=== PATIENT | female | born 1985 | race Caucasian/White ===

== ENCOUNTER 2021-12-01 14:44 | Emergency (ER) | payer OTHER, SELFPAY ==
[2021-12-01 15:09] VITALS: BP 110/73; PULSE 99; RESP 16; TEMP 37.9; O2SAT 100; BMI 38.0
--- NOTE | 2021-12-01 15:12 | HMH.EDUTC ---
[facility] [place] Disposition Clinical Impression: Influenza A Disposition: Home, Self-Care Condition on Discharge: Good Instructions: Influenza, DI for Influenza -- Adult Additional Instructions: Drink plenty of fluids. Take tylenol or ibuprofen for pain or fever. Take the medications as directed. Follow up with your regular doctor. GO TO THE ER FOR ANY WORSENING SYMPTOMS The cough medication (promethazine dm) will make you drowsy, so don't drive or operate heavy machinery after taking it. Prescriptions: Promethazine/Dextromethorphan [Promethazine-Dm Syrup] 5 ml PO Q6HP PRN #240 ml PRN Reason: Cough Transmission Status: Pending to [facility] Ondansetron [Zofran 4mg ODT] 4 mg PO Q8HP PRN #20 tab PRN Reason: Nausea Transmission Status: Pending to [facility] Oseltamivir Phosphate [Tamiflu 75mg Capsule] 75 mg PO BID #10 cap Transmission Status: Pending to [facility] Referrals: Jf Pang [Primary Care Provider] - Time of Disposition: 15:51 Medical Decision Making - Medical Records Medical records reviewed: No: I reviewed the patient's medical records. - Frantz Inquiry Pt receiving controlled substance: No Vital Signs: 12/01/21 15:09 Temperature 100.2 F H Temperature Source Oral Pulse Rate [Left] 99 H Respiratory Rate 16 Blood Pressure [Right Arm] 110/73 Blood Pressure Mean [Right Arm] 85 02 Sat by Pulse Oximetry 100 - Lab Data Lab results reviewed: Yes: I reviewed the patient's lab results. Lab Results 12/01/21 15:06: Influenza Type A Ag Positive A, Influenza Type B Ag Negative Orders (Tests/Meds): ORDERS Category Date Time Status Covid-19 Nasal PCR ([facility]) Routine Lab 12/01/21 15:00 Received Rapid Strep Scrn Group A [Strep Scrn Group A (Rapid)] Lab 12/01/21 15:07 Ordered Stat [facility] [place] HPI - General Stated complaint: fever, cough, congestion, BARRY Time Seen by Provider: 12/01/21 15:12 Mode of Arrival: Ambulatory Source of Information: Patient Limitations: No Limitations Description of Symptoms (Recalled from Triage Doc. by RN): pt c/o a fever, dizziness, chest pressure with coughing (productive), and body aches. denies n/v/d HEENT Symptoms (Recalled from RN notes): Yes Resp Symptoms (Recalled from RN notes): Yes Skin Symptoms (Recalled from RN notes): No MS Symptoms (Recalled from RN notes): No Functional Status (Recalled from RN notes): wnl - History of Present Illness Provider Complaint: She states that for the past 2 days she had a sore throat, sinus congestion, chest congestion, fever and body aches. - Related Data Home Medications Medication Instructions Recorded Confirmed Citalopram Hydrobromide [Celexa] 20 mg PO DAILY 05/27/18 08/11/19 Omeprazole [Omeprazole 40mg 40 mg PO DAILY 05/27/18 08/11/19 Capsule] Buspirone HCl [Buspirone 7.5mg 7.5 mg PO BID 08/11/19 08/11/19 tablets] Valacyclovir HCl [Valtrex] 1,000 mg PO DAILY 08/11/19 08/11/19 Previous Rx's Medication Instructions Recorded Phenazopyridine HCl [Pyridium 200 pow PO TID #6 tab 08/11/19 200mg Tablet] Sulfamethoxazole/Trimethoprim 1 each PO BID 10 Days #20 tab 08/11/19 [Bactrim DS tablet] Ondansetron [Zofran 4mg ODT] 4 mg PO Q8HP PRN #20 tab 12/01/21 Oseltamivir Phosphate [Tamiflu 75 mg PO BID #10 cap 12/01/21 75mg Capsule] Promethazine/Dextromethorphan 5 ml PO Q6HP PRN #240 ml 12/01/21 [Promethazine-Dm Syrup] Allergies Allergy/AdvReac Type Severity Reaction Status Date / Time No Known Allergies Allergy Verified 05/27/18 22:07 - Worker's Comp Is this a Worker's Comp case?: No [facility] History - Hepatitis A Screen Drug use history?: No High risk sexual behaviors?: No History of sexually transmitted infection?: No Currently employed?: No Childcare worker?: No Do you have indoor plumbing?: Yes Do you have electricity?: Yes Attestation statement:: This patient has been screened for Hepatitis A r
[2021-12-01 15:28] LABS: UTC Influenza A Antigen Positive (Negative); UTC Influenza B Antigen Negative (Negative)
[2021-12-01 15:56] VITALS: BP 110/73; PULSE 99; RESP 16; TEMP 37.9
[2021-12-01 16:51] LABS: Strep Scrn Group A (Rapid) Negative (Negative)
== END 2021-12-01 15:58 | disposition home or self-care (01) ==
PROVIDERS: Emergency Provider Nurse Practitioner Family; PCP Family Medicine
DX: J10.1 Influenza due to other identified influenza virus with other respiratory manifestations (principal); F17.210 Nicotine dependence, cigarettes, uncomplicated
CPT/HCPCS: 87430; 87804; 99212; C9803; G0463; U0003; U0005

== ENCOUNTER 2022-12-19 15:36 | Outpatient (CLI) | payer OTHER, SELFPAY ==
[2022-12-19 16:00] VITALS: BMI 34.6
== END 2022-12-19 16:06 | disposition home or self-care (01) ==
PROVIDERS: PCP Internal Medicine Adolescent Medicine; Visit Provider Nurse Practitioner Family
DX: Z11.1 Encounter for screening for respiratory tuberculosis (principal)
CPT/HCPCS: 86580

== ENCOUNTER 2022-12-21 18:10 | Emergency (ER) | payer OTHER, SELFPAY ==
[2022-12-21] VITALS (8 sets, daily range): BP systolic 121–145; BP diastolic 73–93; PULSE 61–82; RESP 12–18; TEMP 36.7; O2SAT 97–100; BMI 34.9
--- NOTE | 2022-12-21 18:15 | HMH.EDGENADL ---
Discharge Plan Disposition Patient Disposition: Home, Self-Care Clinical Impressions Clinical Impression: Atypical chest pain Discharge ED Provider: Edin Mosqueda General Adult HPI General Chief complaint: Chest Pain Stated complaint: chest pain Time Seen by Provider: 12/21/22 18:15 Mode of Arrival: Ambulatory Source of Information: Patient Limitations: No Limitations Description of Symptoms (Recalled from ER Triage Doc. by RN): pt comes in with c/o chest pain that began this afternoon. pt reports pain in middle of chest that radiates to back. pt reports pain with deep inspirations. constant dull pain in chest and lungs. History of Present Illness HPI narrative: 37-year-old female presenting with chest pain. This began 4 hours ago was sudden in nature retrosternal radiating through to her back associated with dyspnea and diaphoresis and nausea. States that the pain was worst at onset and is slowly gotten better but she still has significant discomfort at the moment. She states this has not been exertional not pleuritic in nature not positional as well. Denies any lower extremity swelling any recent immobilizations history of DVT or PE or any contraceptive use. No fevers chills or other symptoms. Related Data Allergies Allergy/AdvReac Type Severity Reaction Status Date / Time No Known Allergies Allergy Verified 12/21/22 18:18 [facility] Disclaimer: The information contained in this section may have been updated after the patient was seen, as this information can be updated by other users. Social History Smoking Status: Current every day smoker alcohol intake: never current occupational status: other Travel in the last 8 weeks: None ROS Obtained: Yes All systems reviewed & no additional complaints except as documented Physical Exam General General appearance: alert Chest Chest inspection: Present normal inspection, symmetric chest wall rise and tenderness Respiratory Respiratory exam: Present normal lung sounds bilaterally; Absent respiratory distress, wheezes, stridor or accessory muscle use Cardiovascular Cardiovascular exam: Present regular rate and other (Bilateral upper extremity radial pulses normal and symmetric); Absent tachycardia Neurological Exam Neurological exam: Present oriented X3 Medical Decision Making Frantz Inquiry Pt receiving controlled substance: No Vital Signs: 12/21/22 18:12 12/21/22 18:14 12/21/22 18:30 Temperature 98.1 F Temperature Source Oral Pulse Rate 74 82 Pulse Rate [Left] 76 Respiratory Rate 18 Blood Pressure 127/85 Blood Pressure [Right Arm] 145/88 H Blood Pressure Mean 99 Blood Pressure Mean [Right Arm] 107 02 Sat by Pulse Oximetry 98 98 Oxygen Delivery Method Room Air 12/21/22 19:30 Temperature Temperature Source Pulse Rate 80 Pulse Rate [Left] Respiratory Rate 12 Blood Pressure 121/73 Blood Pressure [Right Arm] Blood Pressure Mean Blood Pressure Mean [Right Arm] 02 Sat by Pulse Oximetry 98 Oxygen Delivery Method Lab Data Lab results reviewed: Yes I reviewed the patient's lab results. Lab Results 12/21/22 18:12: WBC 8.4, RBC 4.82, Hgb 13.0, Hct 41.7, MCV 86.6, MCH 26.9 L, MCHC 31.1 L, RDW 14.0, Plt Count 341, MPV 8.4, Neut % (Auto) 52.4, Lymph % (Auto) 40.7, [place] % (Auto) 5.0, Eos % (Auto) 1.4, Baso % (Auto) 0.5, Neut # (Auto) 4.4, Lymph # (Auto) 3.4, [place] # (Auto) 0.4, Eos # (Auto) 0.1, Baso # (Auto) 0.0 12/21/22 18:12: PT 10.5, INR 0.97, APTT 28.5 12/21/22 18:12: Sodium 138, Potassium 3.8, Chloride 102, Carbon Dioxide 26, Anion Gap 13.8, BUN 13, Creatinine 0.90, Estimated Creat Clear 142, Estimated GFR 71, Est GFR ( Amer) 86, Glucose 93, Calcium 9.1, Total Bilirubin 0.3, AST 23, ALT 17, Alkaline Phosphatase 83, Troponin I < 0.01, Total Protein 7.4, Albumin 4.2, Globulin 3.2, Albumin/Globulin Ratio 1.3 12/21/22 18:12: Serum HCG, Qual Negative Result diagrams: 12/21/22 18:12 12/21
--- NOTE | 2022-12-21 18:16 | ECG_ITS ---
APPROVED REPORT Exam: Resting ECG HR:78 bpm ECG Measurements Heart Rate 78 AXES ME 151 P 63 QRSd 89 QRS 25 QT 371 T 42 QTc 405 Conclusion SINUS RHYTHM LOW QRS VOLTAGE IN PRECORDIAL LEADS [QRS DEFLECTION < 1.0 mV IN CHEST LEADS] BORDERLINE ECG UNCONFIRMED REPORT Electronically signed by : Johan Mccauley MD 12/22/2022 09:05:06
--- NOTE | 2022-12-21 18:16 | CT_ITS ---
PROCEDURE INFORMATION: Exam: CTA Chest With Contrast Exam date and time: 12/21/2022 7:20 PM Age: 37 years old Clinical indication: Chest wall pain and radiating; Additional info: Chest pain radiating to the back TECHNIQUE: Imaging protocol: Computed tomographic angiography of the chest with contrast. 3D rendering (Not supervised by radiologist): MIP and/or 3D reconstructed images were created by the technologist. Radiation optimization: All CT scans at this facility use at least one of these dose optimization techniques: automated exposure control; mA and/or kV adjustment per patient size (includes targeted exams where dose is matched to clinical indication); or iterative reconstruction. Contrast material: ISOVUE 370; Contrast volume: 100 ml; Contrast route: INTRAVENOUS (IV); REPORTING DATA: Count of CT and Cardiac NM exams in prior 12 months: This patient has received 0 known CTs and 0 known cardiac nuclear medicine studies in the 12 months prior to the current study. COMPARISON: No relevant prior studies available. FINDINGS: Pulmonary arteries: Evaluation of the pulmonary arteries is limited by contrast timing. No large central filling defect. Limited evaluation of lobar and segmental branches. Aorta: No aortic aneurysm. No aortic dissection. Lungs: 6 mm nodule within posterior left lower lobe. No pulmonary consolidation. Pleural spaces: No pneumothorax. No pleural effusion. Heart: No cardiomegaly. No pericardial effusion. Lymph nodes: No enlarged lymph nodes. Bones/joints: Moderately severe scoliosis. No acute fracture. Soft tissues: No significant swelling. IMPRESSION: 1. Moderately severe scoliosis. 2. 6 mm nodule within posterior left lower lobe. For patients at low risk (minimal or absent history of smoking and of other known risk factors), recommend CT Chest at 6-12 months, then consider CT Chest at 18-24 months. For patients at high risk (history of smoking or of other known risk factors), recommend CT Chest at 6-12 months, then CT Chest at 18-24 months. (Reference: Ronal) References: Ronal Cervantes et al. Guidelines for Management of Incidental Pulmonary Nodules Detected on CT Images: From the Fleischner Society 2017. Radiology. 2017;284(1):228-243.
[2022-12-21 18:28] LABS: Chloride 102 mmol/L (98-107)
[2022-12-21 18:29] LABS: Potassium 3.8 mmoL/L (3.5-5.1); Sodium 138 mmol/L (136-145)
[2022-12-21 18:31] LABS: Alanine Aminotransferase 17 U/L (12-78); Albumin Level 4.2 g/dl (3.5-5.0); Albumin/Globulin Ratio 1.3 (1.1-1.8); Alkaline Phosphatase 83 U/L (38-126); Aspartate Amino Transferase 23 U/L (14-36); Bilirubin,Total 0.3 mg/dl (0.2-1.3); Blood Urea Nitrogen 13 mg/dl (7-17); Creatinine Clearance Estimated 142 mL/min (50-200); Estimated Glomerular Filt Rate 71 ml/min (>60); GFR (African American) 86 ML/MIN (>60); Globulin 3.2 g/dL (1.3-3.2); Total Protein,Serum 7.4 g/dl (6.3-8.2)
[2022-12-21 18:32] LABS: Anion Gap 13.8 mEq/L (5-15); Calcium 9.1 mg/dl (8.4-10.2); Carbon Dioxide 26 mmol/L (22.0-30.0); Glucose 93 mg/dl (74-100)
[2022-12-21 18:34] LABS: Activated Partial Thrombo Time 28.5 seconds (22.8-30.6); INR 0.97 (0.9-1.1); Prothrombin Time 10.5 seconds (10.1-12.5)
[2022-12-21 18:35] LABS: Basophils % 0.5 % (0.1-2.0); Eosinophils # 0.1 K/mm3 (0.0-0.4); Eosinophils % 1.4 % (0.1-12.0); Hematocrit 41.7 % (37.0-47.0); Lymphocytes # 3.4 K/mm3 (0.7-4.5); Lymphocytes % 40.7 % (10-50); Mean Corpuscular HGB Conc 31.1 g/dL (31.8-35.4); Mean Corpuscular Hemoglobin 26.9 pg (27.0-31.2); Mean Corpuscular Volume 86.6 fl (81-99); Mean Platelet Volume 8.4 fl (7.4-10.4); Monocytes # 0.4 K/mm3 (0.1-1.0); Neutrophils # 4.4 K/mm3 (1.8-7.8); Neutrophils % 52.4 % (37.0-80.0); Platelet Count 341 K/mm3 (142-424); Red Blood Count 4.82 M/mm3 (4.20-5.40); White Blood Count 8.4 K/mm3 (4.8-10.8)
[2022-12-21 18:59] LABS: Troponin I < 0.01 ng/ml (0.00-0.034)
[2022-12-21 19:05] LABS: HCG Qualitative, Serum Negative (Negative)
--- NOTE | 2022-12-21 20:01 | PC.NURSE ---
Rounded on pt. No needs or complaints voiced.
--- NOTE | 2022-12-21 21:00 | PC.NURSE ---
2nd troponin lab collect and submitted to lab dept.
[2022-12-21 21:29] LABS: Troponin I < 0.01 ng/ml (0.00-0.034)
== END 2022-12-21 21:47 | disposition home or self-care (01) ==
PROVIDERS: Emergency Provider Student in an Organized Health Care Education/Training Program; PCP Internal Medicine Adolescent Medicine
DX: R07.89 Other chest pain (principal); R06.00 Dyspnea, unspecified; R11.0 Nausea; F17.210 Nicotine dependence, cigarettes, uncomplicated
CPT/HCPCS: 71275; 80053; 84484; 84703; 85025; 85610; 85730; 93005; 96360; 96374; 99285; Q9967

== ENCOUNTER → 2023-07-30 08:20 | Outpatient (CLI) | payer OTHER, SELFPAY ==
--- NOTE | 2023-07-30 08:23 | CA_ITS ---
APPROVED REPORT EXAM: Comprehensive 2D, Doppler, and color-flow Echocardiogram Technology Methodology Consultant: AIDAN Ma, RVS Ht: 5 ft 8 in Wt: 256lbs BSA: 2.27 BP: 159/90 mmHg Indications: HTN, CP, Fmialy HX-HD smoker, SOB, Obesity Echo Enhancing Agent Comments: Lung impedance throughout exam 2D Dimensions IVSd 1.03 cm F: 0.6-1.0 LVEF (Visual) 69.70 % PWd 0.92 cm F: 0.6 - 1.0 LA Volume 48.30 mL LVDd 5.05 cm F: 3.9 - 5.3 LA Volume Index 21.704203 mL/m2 (M/F) 16-34 LVDs 3.06 cm F: 2.2 - 3.5 Aortic Root 2.85 cm F: 2.7 - 3.3 Left Atrium 3.16 cm F: 2.7 - 3.8 LVOT 2.15 cm (M/F) 1.5-2.5 M-Mode Dimensions RVDd 2.05 cm (0.9-2.6) LA Diam 3.69 cm (1.9-4.0) LVDd 5.13 cm (3.5-5.7) Ao Diam 3.07 cm (2.0-3.7) LVDs 2.96 cm (3.5-5.7) IVSd 0.87 cm (0.6-1.1) PWd 0.91 cm (0.6-1.1) EF (Teich) 73.00% EPSs 0.64 cm FS 42.30% EDV (Teich) 125.50 mL TAPSE 2.30 (<1.7) ESV (Teich) 33.90 mL LV Diastology E Decel Time 97.00 (160-240 msec) E/A Ratio 1.29 MED E' 11.00 (< 7 cm/sec) MED A' 9.20 cm/s E'/MED E' Ratio 7.16 (>14) LAT E' 15.10 (<10 cm/sec) LAT A' 8.50 cm/s E/LAT E' Ratio 5.22 (>14) Aortic Valve LVOT Max 92.00 (70-110 cm/s) LVOT VTI 19.03 cm AoV Peak Fred. 114.00 (50-130 cm/s) AO Peak GR. 5.20 mmHg AO Mean GR. 3.00 (<5 mmHg) AO VTI 25.02 (18-25 cm) TONY (VTI) 2.76 (2.5-4.5 cm2) Mitral Valve MV A Velocity 61.00 (40-130 cm/s) E/A Ratio 1.29 MV Decel. Time 97.00 (160-240 ms) Tricuspid Valve TR P. Velocity 184.00 cm/s RAP Estimate 10.00 mmHg RVSP 23.50 mmHg Left Ventricle The left ventricle is normal size. The left ventricular systolic function is normal. The left ventricular ejection fraction is within the normal range. There is normal left ventricular wall thickness. There is normal LV segmental wall motion. The left ventricular diastolic function is normal. LVEF is 60%. Right Ventricle The right ventricle is normal size. The right ventricular systolic function is normal. Atria The left atrium size is normal. The right atrium size is normal. There is no Doppler evidence of interatrial shunt. Aortic Valve The aortic valve opens well. There is no aortic valvular stenosis. No aortic regurgitation is present. Mitral Valve The mitral valve is normal in structure. No evidence of mitral valve stenosis. Trace mitral regurgitation. Tricuspid Valve The tricuspid valve leaflets are thin and pliable. Trace tricuspid regurgitation. RVSP is normal. Pulmonic Valve The pulmonary valve is normal in structure. Trace pulmonic regurgitation. Great Vessels The aortic root is normal in size. The ascending aorta is normal in size. IVC is normal in size and collapses >50% with inspiration. Pericardium There is no pericardial effusion. Other Information Study Quality: Fair Conclusion Normal biventricular systolic function. No significant valvular stenosis or regurgitation. Electronically signed by : Katie Bolton MD 08/03/2023 21:00:46
--- NOTE | 2023-07-30 10:41 | CA_ITS ---
APPROVED REPORT Exam: Exercise Treadmill Technologist: Anna Orr, Ht: 5 ft 8 in Wt: 246 lbs BSA: 2.23 m2 HR: 79 bpm BP: 140/78 mmHg Rhythm: NSR Medical History Medications: Omeprazole,,,,, Propranolol,,,,, Fish Oil,,,,, Buspirone,,,,, Montelukast,,,,, Nitroglycerin,,,,, CetIRIZINE,,,,, ValACYCLOVIR,,,,, ONdansetron,,,,, Esomeprazole magnesium,,,,, Effexor XR,,,,, Vyvanse,,,,, Stress Test Details Test: [place] HR Resting HR: 85 bpm Max Heart Rate (APMHR): 183 bpm Max HR Achieved: 167 bpm Target HR (85% APMHR): 156 bpm % of APMHR: 91 Recovery HR: 99 bpm HR response to stress: Normal HR response to stress BP Resting BP: 149.0/87.0 mmHg Max BP: 174.0/87.0 mmHg Recovery BP: 150.0/79.0 mmHg BP response to stress: Normal blood pressure response to stress. ECG Resting ECG: NSR Stress EC mm horizontal ST depression Arrhythmia: None Recovery ECG: Return to baseline within 5 minutes of recovery Clinical Exercise duration: 06:24 min Highest Stage Achieved: III Exercise capacity: 7.0 METs Overall Exercise Capacity for Age: Poor Stress ECG Conclusion The patient was able to exercise for a total of 6 minutes, 24 seconds. She achieved a total of 7 METS. She has poor exercise capacity compared to age and sex matched peers. She has normal HR and BP response to exercise. Max HR: 165 % of PM: 90% Max BP: 174/87 METs: 7.0 Test stopped due to: SOA, Fatigue Symptoms: No CP. Arrhythmias/Ectopy: None ST-T Changes: [address] depression Conclusion: Poor exercise capacity. ECG findings suggestive of ischemia at peak stress. GXT only (no imaging) Test Summary REST . . . . . . . Sitting REST 03:32 0.0 0.0 85 . 149/ 87 . . Stage 1 01:00 10.0 1.7 109 . . . . Stage 1 02:00 10.0 1.7 120 . . . . Stage 1 03:00 10.0 1.7 126 . 132/ 80 . . Stage 2 01:00 12.0 2.5 138 . . . . Stage 2 02:00 12.0 2.5 149 . . . . Stage 2 03:00 12.0 2.5 158 . 154/ 84 . . Stage 3 00:24 14.0 3.4 163 . . . Stop exercise at 06:24 RECOVERY 01:00 0.0 0.0 132 . . . . RECOVERY 02:00 0.0 0.0 103 . . . . RECOVERY 03:00 0.0 0.0 99 . 174/ 87 . . RECOVERY 04:00 0.0 0.0 100 . 153/ 80 . . RECOVERY 05:00 0.0 0.0 100 . 153/ 80 . . RECOVERY 05:39 0.0 0.0 97 . 150/ 79 . . Electronically signed by : Katie Bolton MD 08/04/2023 13:23:05
== END ==
LOC: RT 08:20
PROVIDERS: PCP Internal Medicine Adolescent Medicine; Visit Provider Physician Assistant
DX: R94.31 Abnormal electrocardiogram [ECG] [EKG] (principal); R06.00 Dyspnea, unspecified; R07.89 Other chest pain
CPT/HCPCS: 93017; 93018; 93306

== ENCOUNTER → 2023-08-01 11:27 | Outpatient (CLI) | payer OTHER, SELFPAY ==
[2023-08-01 11:51] LABS: Basophils # 0.1 K/mm3 (0-0.2); Basophils % 0.9 % (0.1-2.0); Eosinophils # 0.1 K/mm3 (0.0-0.4); Eosinophils % 1.4 % (0.1-12.0); Hematocrit 37.8 % (37.0-47.0); Hemoglobin 12.4 g/dL (12.2-16.2); Lymphocytes # 2.5 K/mm3 (0.7-4.5); Lymphocytes % 37.2 % (10-50); Mean Corpuscular HGB Conc 32.8 g/dL (31.8-35.4); Mean Corpuscular Hemoglobin 28.1 pg (27.0-31.2); Mean Corpuscular Volume 85.7 fl (81-99); Mean Platelet Volume 8.7 fl (7.4-10.4); Monocytes # 0.4 K/mm3 (0.1-1.0); Monocytes % 6.4 % (1.7-9.3); Neutrophils # 3.7 K/mm3 (1.8-7.8); Neutrophils % 54.1 % (37.0-80.0); Platelet Count 316 K/mm3 (142-424); Red Blood Count 4.41 M/mm3 (4.20-5.40); Red Cell Distribution Width 14.2 % (11.5-17.5); White Blood Count 6.8 K/mm3 (4.8-10.8)
[2023-08-01 12:31] LABS: Alanine Aminotransferase 21 U/L (12-78); Albumin Level 4.2 g/dl (3.5-5.0); Alkaline Phosphatase 71 U/L (38-126); Aspartate Amino Transferase 24 U/L (14-36); Bilirubin,Indirect 0.3 mg/dL (0.0-0.9); Bilirubin,Total 0.3 mg/dl (0.2-1.3); Bilirubin,Unconjugated 0.3 mg/dL (0.0-1.1); Blood Urea Nitrogen 12 mg/dl (7-17); Calcium 8.9 mg/dl (8.4-10.2); Carbon Dioxide 28 mmol/L (22.0-30.0); Chloride 104 mmol/L (98-107); Cholesterol 211 mg/dl (140-200); Estimated Glomerular Filt Rate 81 ml/min (>60); GFR (African American) 98 ML/MIN (>60); Glucose 94 mg/dl (74-100); Magnesium 1.8 mg/dl (1.6-2.3); Total Protein,Serum 7.1 g/dl (6.3-8.2); Triglycerides 174 mg/dl (30-150); VLDL Cholesterol 35 mg/dL (0-40)
[2023-08-01 12:32] LABS: Anion Gap 9.9 mEq/L (5-15); Chol/HDL Ratio 4.6 (1-3.5); HDL Cholesterol 46 mg/dl (40-60); Potassium 3.9 mmoL/L (3.5-5.1); Sodium 138 mmol/L (136-145)
[2023-08-01 12:49] LABS: Free T4 (Free Thyroxine) 1.06 ng/dl (0.78-2.19)
[2023-08-01 12:51] LABS: Direct LDL Cholesterol 121.33 mg/dL (100-129)
[2023-08-01 13:02] LABS: Thyroid Stimulating Hormone 1.73 uIU/mL (0.465-4.68)
[2023-08-01 13:26] LABS: Hemoglobin A1C 5.5 % (4.0-6.0)
== END ==
PROVIDERS: PCP Internal Medicine Adolescent Medicine; Visit Provider Physician Assistant
DX: R06.00 Dyspnea, unspecified (principal); R07.9 Chest pain, unspecified; R94.31 Abnormal electrocardiogram [ECG] [EKG]
CPT/HCPCS: 36415; 80048; 80061; 80076; 83036; 83735; 84439; 84443; 85025

== ENCOUNTER → 2023-09-10 10:00 | Outpatient (CLI) | payer OTHER, SELFPAY | PROVIDERS: PCP Nurse Practitioner Family; Visit Provider Nurse Practitioner Family | DX: G47.36 Sleep related hypoventilation in conditions classified elsewhere (principal); R06.83 Snoring | CPT/HCPCS: G0399 ==

== ENCOUNTER 2023-11-12 08:20 | Outpatient (CLI) | payer OTHER, SELFPAY ==
--- NOTE | 2023-11-12 08:23 | XR_ITS ---
FINAL REPORT CLINICAL HISTORY: hypoxemia, f/u lung nodule FINDINGS: TWO-VIEW CHEST The heart size is normal. The mediastinum is normal. The lungs are clear. No definite nodule is identified. There is no pneumothorax. There is dextroscoliosis of the thoracic spine. IMPRESSION: No definite nodule identified. CT could further evaluate. Reviewed, Interpreted and Dictated by Kvng Jamison III, MD Transcribed by Naomie Handley Authenticated and [facility]
[2023-11-12 10:17] LABS: Iron 56 ug/dL (37-170)
[2023-11-12 10:30] LABS: Total Iron Binding Capacity 400 ug/dL (265-497)
[2023-11-12 10:55] LABS: Ferritin 5.98 ng/ml (6.24-137)
== END 2023-11-12 23:59 ==
PROVIDERS: PCP Internal Medicine Adolescent Medicine; Visit Provider Nurse Practitioner Family
DX: R91.1 Solitary pulmonary nodule (principal); Z79.899 Other long term (current) drug therapy; G25.81 Restless legs syndrome; G47.9 Sleep disorder, unspecified; G47.34 Idiopathic sleep related nonobstructive alveolar hypoventilation; R53.83 Other fatigue
CPT/HCPCS: 36415; 71046; 82728; 83540; 83550

== ENCOUNTER 2023-11-28 18:55 | Outpatient (CLI) | payer OTHER, SELFPAY ==
[2023-11-30 09:24] LABS: Estradiol 81.9 pg/mL (.); Progesterone 0.1 ng/mL (.); Testosterone,Total 9 ng/dL (8-60)
== END 2023-11-28 23:59 ==
LOC: LAB.DROPOF 18:55
PROVIDERS: PCP Internal Medicine; Visit Provider Internal Medicine
DX: R23.2 Flushing (principal); R45.86 Emotional lability
CPT/HCPCS: 82670; 84144; 84403

== ENCOUNTER 2024-02-04 09:03 | Outpatient (POV) | payer OTHER, SELFPAY | END 2024-02-04 23:59 | disposition home or self-care (01) | LOC: SC 09:03 | PROVIDERS: Visit Provider Specialist/Technologist | DX: Z00.00 Encounter for general adult medical examination without abnormal findings (principal) ==

== ENCOUNTER 2024-08-20 12:00 | Outpatient (CLI) | payer OTHER, SELFPAY ==
[2024-08-20 18:05] LABS: Basophils % 0.7 % (0.1-2.0); Eosinophils # 0.1 K/mm3 (0.0-0.4); Eosinophils % 2.3 % (0.1-12.0); Hematocrit 39.7 % (37.0-47.0); Hemoglobin 13.3 g/dL (12.2-16.2); Lymphocytes # 1.9 K/mm3 (0.7-4.5); Lymphocytes % 29.6 % (10-50); Mean Corpuscular HGB Conc 33.4 g/dL (31.8-35.4); Mean Corpuscular Hemoglobin 28.6 pg (27.0-31.2); Mean Corpuscular Volume 85.5 fl (81-99); Mean Platelet Volume 9.2 fl (7.4-10.4); Monocytes # 0.4 K/mm3 (0.1-1.0); Monocytes % 5.5 % (1.7-9.3); Neutrophils # 3.9 K/mm3 (1.8-7.8); Platelet Count 392 K/mm3 (142-424); Red Blood Count 4.64 M/mm3 (4.20-5.40); Red Cell Distribution Width 14.2 % (11.5-17.5); White Blood Count 6.3 K/mm3 (4.8-10.8)
[2024-08-20 18:43] LABS: Albumin Level 4.4 g/dl (3.5-5.0); Chloride 108 mmol/L (98-107); Sodium 140 mmol/L (136-145)
[2024-08-20 18:44] LABS: Potassium 4.5 mmoL/L (3.5-5.1)
[2024-08-20 18:46] LABS: Alanine Aminotransferase 21 U/L (12-78); Albumin/Globulin Ratio 1.6 (1.1-1.8); Anion Gap 11.5 mEq/L (5-15); Aspartate Amino Transferase 24 U/L (14-36); Blood Urea Nitrogen 9 mg/dl (7-17); Carbon Dioxide 25 mmol/L (22.0-30.0); Estimated Glomerular Filt Rate 80 ml/min (>60); GFR (African American) 97 ML/MIN (>60); Globulin 2.8 g/dL (1.3-3.2); Total Protein,Serum 7.2 g/dl (6.3-8.2)
[2024-08-20 18:47] LABS: Alkaline Phosphatase 66 U/L (38-126); Bilirubin,Total 0.7 mg/dl (0.2-1.3); Calcium 9.6 mg/dl (8.4-10.2); Chol/HDL Ratio 5.4 (1-3.5); Cholesterol 268 mg/dl (140-200); Glucose 102 mg/dl (74-100); HDL Cholesterol 50 mg/dl (40-60); Triglycerides 141 mg/dl (30-150); VLDL Cholesterol 28 mg/dL (0-40)
[2024-08-20 19:00] LABS: Direct LDL Cholesterol 173.83 mg/dL (100-129)
== END 2024-08-20 23:59 | disposition home or self-care (01) ==
LOC: LAB.DROPOF 08-21 09:17
PROVIDERS: PCP Family Medicine; Visit Provider Family Medicine
DX: E61.1 Iron deficiency (principal)
CPT/HCPCS: 80053; 80061; 82728; 85025

== ENCOUNTER 2024-11-11 14:28 | Outpatient (CLI) | payer OTHER, SELFPAY ==
[2024-11-11 21:05] LABS: Coronavirus 19, PCR Not Detected (NotDetected); Human Rhinovirus Not Detected (NotDetected); Influenza A, PCR Not Detected (NotDetected); Influenza B, PCR Not Detected (NotDetected); Respiratory Syncytial Virus Not Detected (NotDetected)
== END 2024-11-11 23:59 | disposition home or self-care (01) ==
LOC: LAB.DROPOF 11-15 14:28
PROVIDERS: PCP Family Medicine; Visit Provider Nurse Practitioner
DX: B34.9 Viral infection, unspecified (principal)
CPT/HCPCS: 87631

== ENCOUNTER 2024-11-18 14:36 | Outpatient (CLI) | payer OTHER, SELFPAY | END 2024-11-18 23:59 | disposition home or self-care (01) | LOC: LAB.DROPOF 11-19 12:08 | PROVIDERS: PCP Nurse Practitioner; Visit Provider Nurse Practitioner | DX: R30.0 Dysuria (principal) | CPT/HCPCS: 87086; 87088; 87186 ==

== ENCOUNTER 2024-12-07 11:36 | Outpatient (CLI) | payer OTHER, SELFPAY ==
--- NOTE | 2024-12-07 11:55 | XR_ITS ---
FINAL REPORT CLINICAL HISTORY: chest pain midsternal COMPARISON: 11/12/2023 FINDINGS: 2 views of the chest were obtained . The heart is normal in size. The mediastinum is within normal limits. The lungs are clear. There is no pneumothorax. Osseous structures demonstrate moderate dextroscoliosis. IMPRESSION: No acute cardiopulmonary process. Reviewed, Interpreted and Dictated by Niraj May MD Transcribed by Lisa Lee Authenticated and [facility]
[2024-12-07 12:01] LABS: Basophils # 0.1 K/mm3 (0-0.2); Eosinophils # 0.2 K/mm3 (0.0-0.4); Eosinophils % 2.5 % (0.1-12.0); Hematocrit 36.5 % (37.0-47.0); Hemoglobin 11.4 g/dL (12.2-16.2); Lymphocytes # 2.6 K/mm3 (0.7-4.5); Lymphocytes % 43.2 % (10-50); Mean Corpuscular HGB Conc 31.2 g/dL (31.8-35.4); Mean Corpuscular Hemoglobin 25.9 pg (27.0-31.2); Mean Corpuscular Volume 82.8 fl (81-99); Mean Platelet Volume 9.4 fl (7.4-10.4); Monocytes # 0.5 K/mm3 (0.1-1.0); Monocytes % 8.4 % (1.7-9.3); Neutrophils # 2.6 K/mm3 (1.8-7.8); Neutrophils % 44.7 % (37.0-80.0); Platelet Count 355 K/mm3 (142-424); Red Blood Count 4.41 M/mm3 (4.20-5.40); Red Cell Distribution Width 14.1 % (11.5-17.5); White Blood Count 5.9 K/mm3 (4.8-10.8)
[2024-12-07 12:24] LABS: Erythrocyte Sedimentation Rate 23 mm/hr (0-20)
[2024-12-07 12:29] LABS: Alanine Aminotransferase 24 U/L (12-78); Albumin Level 3.8 g/dl (3.5-5.0); Albumin/Globulin Ratio 1.2 (1.1-1.8); Alkaline Phosphatase 62 U/L (38-126); Anion Gap 12.5 mEq/L (5-15); Aspartate Amino Transferase 26 U/L (14-36); Bilirubin,Total 0.4 mg/dl (0.2-1.3); Blood Urea Nitrogen 10 mg/dl (7-17); Calcium 9.6 mg/dl (8.4-10.2); Carbon Dioxide 29 mmol/L (22.0-30.0); Chloride 103 mmol/L (98-107); Estimated Glomerular Filt Rate 80 ml/min (>60); GFR (African American) 97 ML/MIN (>60); Globulin 3.3 g/dL (1.3-3.2); Glucose 104 mg/dl (74-100); Potassium 4.5 mmoL/L (3.5-5.1); Sodium 140 mmol/L (136-145); Total Protein,Serum 7.1 g/dl (6.3-8.2)
[2024-12-07 12:34] LABS: C-Reactive Protein 7.8 mg/L (0-4)
[2024-12-07 13:01] LABS: Thyroid Stimulating Hormone 2.02 uIU/mL (0.465-4.68)
[2024-12-07 14:01] LABS: Free T4 (Free Thyroxine) 1.12 ng/dl (0.78-2.19)
[2024-12-07 15:59] LABS: Iron 47 ug/dL (37-170)
[2024-12-07 16:11] LABS: Total Iron Binding Capacity 414 ug/dL (265-497)
[2024-12-07 16:37] LABS: Ferritin 8.28 ng/ml (6.24-137)
== END 2024-12-07 23:59 | disposition home or self-care (01) ==
PROVIDERS: PCP Family Medicine; Visit Provider Family Medicine
DX: R39.9 Unspecified symptoms and signs involving the genitourinary system (principal); B34.9 Viral infection, unspecified; R53.83 Other fatigue; R23.2 Flushing; R07.9 Chest pain, unspecified; R06.09 Other forms of dyspnea; E61.1 Iron deficiency
CPT/HCPCS: 36415; 71046; 80053; 82728; 83540; 83550; 84439; 84443; 85025; 85651; 86140; 87086

== ENCOUNTER 2025-03-05 16:52 | Emergency (ER) | payer OTHER, SELFPAY ==
--- OUTSIDE RECORDS SUMMARY | 2024-12-11 17:30 | XMS_ITS ---
Author Organization [facility] Address [address] [place] [address] Care Team Providers Care Sharepoint Engineer Name Role Phone Johan Mccauley Primary Care Provider [phone] Johan Mccauley Unavailable Unavailable Migration, Provider Unavailable Unavailable REASON FOR VISIT [facility] To [facility] Conversion Encounter Medications Medication SIG (Take, Route, Frequency, Duration) Notes Start Date End Date Status Montelukast Sodium 10 MG 1 tab(s) orally once a day at bedtime; Duration: 30 days Active Omeprazole 40 MG 1 cap(s) orally once a day; Duration: 90 days Active Vyvanse 40 MG 1 cap(s) orally once a day (in the morning); Duration: 30 days 10/21/2023 Active busPIRone HCl 15 MG 1 tab(s) orally 2 ti mes a day; Duration: 30 days Active Propranolol HCl 20 MG 1 cap(s) orally 2 times a day; Duration: 90 days Active valACYclovir HCl 500 MG 1 tab(s) orally once a day prn; Duration: 90 days 07/01/2022 Active Venlafaxine HCl ER 150 MG 1 cap(s) orall y once a day; Duration: 90 day(s) Active Fluticasone Propionate 50 MCG/ACT 1 spray(s) in each nostril once a day; Duration: 30 days 12/17/2022 Active Cetirizine HCl 10 MG 1 tab(s) orally onc e a day; Duration: 30 days Active Encounters Encounter Location Date Provider Diagnosis [facility] [address] [place] [address] 12/11/2024 Provider Migration Binge eating disorder F50.81 and Myalgia, unspecified site M79.10 Assessments Encounter Date Diagnosis (ICD Code) Assessment Notes Treatment Notes Treatment Clinical Notes Section Notes 12/11/2024 Binge eating disorder (ICD-10 - F50.81) 12/11/2024 Myalgia, unspecified site (ICD-10 - M79.10) Plan Of Treatment Medication Medication Name Sig Start Date Stop Date Notes Montelukast Sodium 10 MG 1 tab(s) orally once a day at bedtime; Duration: 30 days Omeprazole 40 MG 1 cap(s) orally once a day; Duration: 90 days Vyvanse 40 MG 1 cap(s) orally once a day (in the morning); Duration: 30 days 10/21/2023 busPIRone HCl 15 MG 1 tab(s) orally 2 ti mes a day; Duration: 30 days Propranolol HCl 20 MG 1 cap(s) orally 2 times a day; Duration: 90 days valACYclovir HCl 500 MG 1 tab(s) orally once a day prn; Duration: 90 days 07/01/2022 Venlafaxine HCl ER 150 MG 1 cap(s) orall y once a day; Duration: 90 day(s) Progress Notes * Kymberly HUSSEINDOB:1984 (39 yo F)Acc No.[id number]:12/11/2024 Patient: Kymberly HAMMER Provider: Pedro Pablo Field :1985 A ge:39 Y S ex:Female Date:12/11/2024 Address:[address] [place] [address], [address] Pcp:Johan Mccauley Subjective: * Chief Complaints: * 1 . [facility] Conversion Encounter. * Medical History: * Medications: T aking Fluticasone Propionate 50 MCG/ACT Suspension 1 spray(s) in each nostril once a day , Taking Cetirizine HCl 10 MG Tablet 1 tab(s) orally once a day Objective: * Vitals: Assessment: * Assessment: 1. B duran eating disorder - F50.81 2 . M yalgia, unspecified site - M79.10? Plan: * Treatment: 2. M yalgia, unspecified site Refill valACYclovir HCl Tablet, 500 MG, 1 tab(s), orally, once a day prn, 90 days, 90, Refills 1.? 3. O thers Start Venlafaxine HCl ER Capsule Extended Release 24 Hour, 150 MG, 1 cap(s), orally, once a day, 90 day(s), 90 Capsule, Refills 2; S tart Montelukast Sodium Tablet, 10 MG, 1 tab(s), orally, once a day at bedtime, 30 days, 30, Refills 1; S tart Omeprazole Capsule Delayed Release, 40 MG, 1 cap(s), orally, once a day, 90 days, 90 Capsule, Refills 0; R efill Propranolol HCl Tablet, 20 MG, 1 cap(s), orally, 2 times a day, 90 days, 180 Capsule, Refills 0; S tart busPIRone HCl Tablet, 15 MG, 1 tab(s), orally, 2 times a day, 30 days, 60, Refills 5. * * Electronic signature of Prov ider Migration on 03/05/2025 at 04:57 PM EDT Sign off status: Pending * Provider: Pedro Pablo marte Migration Date: 0 12/11/2024 Generated for Jackelyn alcala/Rell/Will on: 0 03/05/2025 04:57 PM EDT
[2025-03-05 16:53] VITALS: BP 150/81; PULSE 80; RESP 16; TEMP 37; O2SAT 100; BMI 38.7
--- OUTSIDE RECORDS SUMMARY | 2025-03-05 16:57 | XMS_ITS | Patient Health Record ---
Author Organization [facility] Address [address] [facility] [address] [place] [address] Care Team Providers Care Tray Service Worker Name Role Phone Johan Mccauley Primary Care Provider Johan Mccauley Unavailable Unavailable Sandy Chang Unavailable [phone] Migration, Provider Unavailable Unavailable Allergies No Known Allergies Reason For Referral No Information Medications Medication SIG (Take, Route, Frequency, Duration) Notes Start Date End Date Status valACYclovir HCl 500 MG 1 tab(s) orally once a day prn; Duration: 90 days 07/01/2022 Active Montelukast Sodium 10 MG 1 tab(s) orally once a day at bedtime; Duration: 30 days Active Omeprazole 40 MG 1 cap(s) orally once a day; Duration: 90 days Active Vyvanse 40 MG 1 cap(s) orally once a day (in the morning); Duration: 30 days 10/21/2023 Active busPIRone HCl 15 MG 1 tab(s) orally 2 ti mes a day; Duration: 30 days Active Venlafaxine HCl ER 150 MG 1 cap(s) orall y once a day; Duration: 90 day(s) Active Propranolol HCl 20 MG 1 cap(s) orally 2 times a day; Duration: 90 days Active Fluticasone Propionate 50 MCG/ACT 1 spray(s) in each nostril once a day; Duration: 30 days 12/17/2022 Active Cetirizine HCl 10 MG 1 tab(s) orally onc e a day; Duration: 30 days Active Social History Tobacco Use: Social History Observation Description Date Details (start date - stop date) Current Smoker NA - NA Smoking: Question Answer Notes Are you a: current smoker How often do you smoke cigarettes? every day How many cigarettes a day do you smoke? 5 or les s Section Notes: vapes vapes vapes vapes vapes Problems Problem Type SNOMED Code ICD Code Onset Dates Problem Status W/U Status Risk Notes Problem Chronic rhinitis (67159303) Chronic rhinitis (J31.0) Active confirmed Problem Mixed anxiety and depressive disorder (227355466) Depression with anxiety (F41.8) Active confirmed Problem Anxiety (89583397) Anxiety (F41.9) Active confi rmed Problem Vitamin D deficiency (72936287) Vitamin D deficiency (E55.9) Active confirmed Problem Morbid obesity (239810300) Morbid obesity (E66.01) Active confirmed Problem Gallstones (179316097) Gallstones (K80.20) Active confirmed Problem Gastroesophageal reflux disease without esophagitis (709772682) Gastroesophageal reflux disease without esophagitis (K21.9) Active confirmed Problem Generalized anxiety disorder (71557385) QUE (generalized anxiety disorder) (F41.1) Active confirmed Problem Migraine (16249315) Migraine wit hout status migrainosus, not intractable, unspecified migraine type (G43.909) Active confirmed Problem Daytime somnolence (098486419304) Daytime somnolence (R40.0) Active confirmed Problem Binge eating disorder (988385131) Binge eating disorder (F50.81) Active confirmed Problem Major depression single episode, in partial remission (11401573) Major depress, 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) Active confirmed Problem Attention deficit hyperactivity disorder (306807675) Adult ADHD (F90.9) Active confirmed Encounters Encounter Location Date Provider Diagnosis [facility] [facility] [address] [place] [address] 12/11/2024 Provider Migration Binge eating disorder F50.81 and Myalgia, unspecified site M79.10 [place] [address] [address] 06/12/2024 Johan Mccauley [place] [address] [address] 07/22/2024 Sandy Chang Assessments Encounter Date Diagnosis (ICD Code) Assessment Notes Treatment Notes Treatment Clinical Notes Section Notes 12/11/2024 Binge eating disorder (ICD-10 - F50.81) 12/11/2024 Myalgia, unspecified site (ICD-10 - M79.10) Plan Of Treatment No Information Insurance Providers Payer Name Payer Address Payer Phone Subscriber Number Group Number Insured Name Patient Relationship to Insured Coverage Start Date Coverage End Date [employer] [facility] [address] [address] [place] [address] [phone] [id number] Kymberly Fierro Self - patient is the insured Medical (General) History Medical History History ICD Code depression anxiety acid reflex migaines gallstones Surgical History Surgery Date(Month/Year) tonsillectomy adenoidectomy C section x2 Hospitalization History Reason Date(Month/Year) C-Diff child x2
--- NOTE | 2025-03-05 17:00 | ECG_ITS ---
APPROVED REPORT Exam: Resting ECG HR:73 bpm ECG Measurements Heart Rate 73 AXES [place] 172 P 68 QRSd 91 QRS 30 QT 388 T 58 QTc 414 Conclusion Sinus rhythm Low voltage Electronically signed by : TRESSA MORALES, 03/05/2025 22:39:51
[2025-03-05 17:05] VITALS: BP 130/78; PULSE 80; RESP 13; O2SAT 100
[2025-03-05 17:12] LABS: Basophils # 0.1 K/mm3 (0-0.2); Basophils % 0.9 % (0.1-2.0); Eosinophils # 0.1 Kmm3 (0.0-0.4); Eosinophils % 1.1 % (0.1-12.0); Hematocrit 41.3 % (37.0-47.0); Hemoglobin 13.2 g/dL (12.2-16.2); Immature Granulocytes # 0.02 10^3uL; Immature Granulocytes % 0.2 %; Lymphocytes # 2.7 K/mm3 (0.7-4.5); Lymphocytes % 32.8 % (10-50); Mean Corpuscular Hemoglobin 27.3 pg (27.0-31.2); Mean Corpuscular Volume 85.3 fl (81-99); Mean Platelet Volume 10.3 fl (7.4-10.4); Monocytes # 0.4 K/mm3 (0.1-1.0); Monocytes % 4.9 % (1.7-9.3); Neutrophils # 4.9 K/mm3 (1.8-7.8); Neutrophils % 60.1 % (37.0-80.0); Nucleated Red Blood Cells # 0 10^3/uL; Nucleated Red Blood Cells % 0 %; Platelet Count 335 K/mm3 (142-424); Red Blood Count 4.84 M/mm3 (4.20-5.40); Red Cell Distribution Width 15.8 % (11.5-17.5); Red Cell Distribution Width-SD 49.6 fL; White Blood Count 8.2 K/mm3 (4.8-10.8)
[2025-03-05 17:20] VITALS: PULSE 80
[2025-03-05 17:22] LABS: Alanine Aminotransferase 18 U/L (12-78); Albumin Level 4.2 g/dl (3.5-5.0); Albumin/Globulin Ratio 1.2 (1.1-1.8); Alkaline Phosphatase 66 U/L (38-126); Anion Gap 15.9 mEq/L (5-15); Aspartate Amino Transferase 24 U/L (14-36); Bilirubin,Total 0.5 mg/dl (0.2-1.3); Blood Urea Nitrogen 7 mg/dl (7-17); Calcium 9.6 mg/dl (8.4-10.2); Carbon Dioxide 25 mmol/L (22.0-30.0); Chloride 104 mmol/L (98-107); Creatinine Clearance Estimated 174 mL/min (50-200); Estimated Glomerular Filt Rate 80 ml/min (>60); GFR (African American) 97 ML/MIN (>60); Globulin 3.5 g/dL (1.3-3.2); Glucose 132 mg/dl (74-100); Potassium 3.9 mmoL/L (3.5-5.1); Sodium 141 mmol/L (136-145); Total Protein,Serum 7.7 g/dl (6.3-8.2)
[2025-03-05 17:30] VITALS: BP 146/88; PULSE 72; RESP 13; O2SAT 99
--- NOTE | 2025-03-05 17:33 | XR_ITS ---
PROCEDURE INFORMATION: Exam: XR Chest Exam date and time: 03/05/2025 5:41 PM Age: 39 years old Clinical indication: Pain; Chest pressure; Additional info: Cp TECHNIQUE: Imaging protocol: Radiologic exam of the chest. Views: 1 view. COMPARISON: CR XR CHEST 2V 12/07/2024 11:59 AM FINDINGS: Lungs: Unremarkable. No consolidation. Pleural spaces: Unremarkable. No pleural effusion. No pneumothorax. Heart/Mediastinum: Unremarkable. No cardiomegaly. Bones/joints: Unremarkable. IMPRESSION: No acute findings.
[2025-03-05 17:35] LABS: Troponin I < 0.01 ng/ml (0.00-0.034)
--- NOTE | 2025-03-05 17:47 | ED_ITS ---
Discharge Plan Disposition Patient Disposition: Home, Self-Care Condition: Good Prescriptions Prescriptions: No Action nitroglycerin 0.4 mg tablet, sublingual 0.4 mg sublingual Q5M PRN (Reason: chest pain) Qty: 25 0RF Rx Instructions: do not exceed 3 doses per episode lamotrigine [Lamictal] 25 mg tablet 100 mg PO DAILY Qty: 100 0RF Rx Instructions: If you develop a rash or itching, stop the medication and call the clinic. Take three tablets daily for two weeks, then four tablets daily. hydroxyzine HCl 25 mg tablet 25 mg PO HS Qty: 30 5RF albuterol sulfate 90 mcg/actuation HFA aerosol inhaler 1 inh inhalation QID PRN (Reason: shortness of breath or wheezing) Qty: 8.5 3RF Nurtec ODT 75 mg tablet,disintegrating See Rx Instructions .ROUTE .COMPLEX Qty: 15 0RF Dose Instruction: TAKE 75 MG BY MOUTH ONCE, THEN AT ONSET OF MIGRAINE. Rx Instructions: TAKE 75 MG BY MOUTH ONCE, THEN AT ONSET OF MIGRAINE. propranolol 20 mg tablet 20 mg PO BID Qty: 180 1RF buspirone 15 mg tablet 15 mg PO BID Qty: 60 5RF nicotine (polacrilex) 4 mg gum 4 mg buccal Q2H Qty: 50 1RF venlafaxine 37.5 mg capsule,extended release 24hr See Rx Instructions PO DAILY Qty: 42 2RF Rx Instructions: three capsules PO daily for 7 days, then two capsules PO daily for next 7 days, then one capsule daily for seven days and discontinue venlafaxine 150 mg capsule,extended release 24hr See Rx Instructions .ROUTE .COMPLEX Qty: 90 0RF Dose Instruction: Take 1 capsule by mouth once daily Rx Instructions: Take 1 capsule by mouth once daily omeprazole 40 mg capsule,delayed release(DR/EC) See Rx Instructions .ROUTE .COMPLEX Qty: 90 0RF Dose Instruction: Take 1 capsule by mouth once daily Rx Instructions: Take 1 capsule by mouth once daily montelukast 10 mg tablet 10 mg PO DAILY Qty: 30 1RF Referrals Follow up/Referrals: Johan Booker MD [Primary Care Provider, Family Practice] - See instructions Activity Restrictions/Add. Instructions Additional Instructions/Restrictions: Please follow-up with your family doctor in the upcoming days/weeks, please return to the emergency department any worsening signs or symptoms, utilize anti-inflammatory medication such as Tylenol or ibuprofen as needed for symptomatic relief. Continue smoking/vaping cessation. Clinical Impressions Clinical Impression: Chest pain Instructions Patient Instructions: DI for Atypical Chest Pain Print Language Print Language: Serbian Discharge ED Provider: Flo Laird HPI <ANI Goldberg - Last Filed: 03/05/25 18:16> General Chief Complaint: Chest Pain Stated Complaint: CP Time Seen by Provider: 03/05/25 17:28 Mode of Arrival: Ambulatory Source of Information: Patient Description of Symptoms (Recalled from ER Triage Doc. by RN): Patient states she has been having pain in the center of her chest for 10 days. Has not seen her doctor. History of Present Illness HPI narrative: 39-year-old female presents emergency department with a 10-day history of of substernal chest pain that is nonradiating, patient denies any trauma or injury per history, denies any fever chills cough congestion sore throat, admits to shortness of breath at times, denies any abdominal pain nausea vomiting constipation diarrhea, no urinary type symptomatology, patient is a current smoker, (vapes), denies alcohol or drug use, initial triage vitals grossly unremarkable, patient just tried NSAIDs, with little to no relief of her symptomatology, patient states that there is no alleviating factors, the chest pain waxes and wanes, at maximal was a 5 out of 10, currently a 2 out of 10 at rest. Related Data Previous Rx's ?Medication ?Instructions ?Recorded nitroglycerin 0.4 mg sublingual 0.4 mg sublingual Q5M PRN chest 06/24/23 tablet pain #25 tabs albuterol sulfate 90 mcg/actuation 1 inh inhalation QI D PRN shortness 12/16/23 aerosol inhaler of breath or wheezing #8.5 g kian rimegepant 75 mg disintegrating See Rx Instructions .R oute 09/14/24 tablet (Nurtec ODT) .COMPLEX #15 tabs propranolol 20 mg tablet 20 mg PO BID #180 tabs 10/26 buspirone 15 mg tablet 15 mg PO BID #60 tabs nicotine (polacrilex) 4 mg gum 4 mg buccal Q2H #50 ea 12/07/24 venlafaxine 37.5 mg See Rx Instructions PO DAILY #42 12/08/24 capsule,extended release 24 hr caps venlafaxine 150 mg See Rx Instructions .Route 0 12/15/24 capsule,extended release 24 hr .COMPLEX #90 caps omeprazole 40 mg capsule,delayed See Rx Instructions . Route 01/06/25 release .COMPLEX #90 caps montelukast 10 mg tablet 10 mg PO DAILY #30 tabs 01/06 12/31 hydroxyzine HCl 25 mg tablet 25 mg PO HS #30 tabs 02/06 10/02 lamotrigine 25 mg tablet (Lamictal) 100 mg (4 x 25 mg) PO DAILY #100 02/16/25 tabs Allergies Allergy/AdvReac Type Severity Reaction Status Date / Time venlafaxine AdvReac diaphoresis Verified 03/05/25 16:57 [facility] <ANI Goldberg - Last Filed: 03/05/25 18:16> [facility] Disclaimer: The information contained in this section may have been updated after the patient was seen, as this information can be updated by other users. Medical History Mood disorder UTI symptoms Viral syndrome Mood disorder Iron deficiency High cholesterol Screening for cervical cancer BPPV (benign paroxysmal positional vertigo) Mixed hearing loss of left ear History of Meniere's disease Hearing loss Abnormal electrocardiogram [ECG] [EKG] Family History Other Alcoholism Cancer Coronary artery disease Diabetes Heart attack Hypertension Substance abuse Social History Smoking Status: Current every day smoker tobacco type: cigarettes alcohol intake: never substance use type: denies use current occupational status: employed Travel in the last 8 weeks?: None household members: children housing: apartment marital status: Have you lived/traveled outside [place] in past 30 days?: No Contact w/someone who lives/traveled outside US past 30 days?: No Exposure to someone with infectious disease in past 14 days?: No Do you have a fever (greater than 100.4 F or 38 C)?: No Have you tested positive for COVID-19?: No Exposed to someone with COVID-19 in past 14 days?: No Do you have a sore throat?: No Do you have a cough?: No Do you have any weakness?: No Do you have any diarrhea?: No Are you experiencing any unusual bleeding?: No Do you have any muscle aches/pain?: No Do you have any abdominal pain?: No Are you experiencing loss of taste or smell?: No Other Medical History Have you received the Flu Vaccine for this season: No Have you received the Pneumonia Vaccine: No <ANI Goldberg - Last Filed: 03/05/25 18:16> ROS Obtained: Yes All systems reviewed & no additional complaints except as documented Physical Exam <ANI Goldberg - Last Filed: 03/05/25 18:16> General General appearance: alert and in no apparent distress Head Head exam: atraumatic and normocephalic Eye Eye exam: Present normal appearance, PERRL and EOMI Neck Neck exam: Present full ROM; Absent meningismus Chest Chest inspection: Present normal inspection; Absent tenderness Respiratory Respiratory exam: Absent respiratory distress, wheezes, stridor, accessory muscle use or prolonged expiratory phase Cardiovascular Cardiovascular exam: Present normal rhythm and other (Pulses equal and symmetric in bilateral upper and lower extremities) Abdominal Exam Abdominal exam: Absent distention Extremities Exam Extremities exam: Absent edema Neurological Exam Neurological exam: Present alert Psychiatric Psychiatric exam: Present normal affect Skin Skin exam: Present warm and dry HEART Score <ANI Goldberg - Last Filed: 03/05/25 18:16> HEART Score HEART Score assessment performed?: Yes HEART Score: 1 <Flo Laird MD - Last Filed: 03/05/25 19:15> HEART Score HEART Score: 3 Critical Care <ANI Goldberg - Last Filed: 03/05/25 18:16> Critical Care Time Critical Care Time: No Medical Decision Making <ANI Goldberg - Last Filed: 03/05/25 18:16> Medical Records Medical records reviewed: Yes I reviewed the patient's medical records. Frantz Inquiry Pt receiving controlled substance: No Frantz was queried for this patient: No Vital Signs Vital Signs: 03/05/25 16:53 03/05/25 17:05 03/05/25 17:20 Temperature 98.6 F Temperature Source Oral Pulse Rate 80 80 Pulse Rate [Right Brachial] 80 Respiratory Rate 16 13 Blood Pressure 130/78 Blood Pressure [Right Arm] 150/81 H Blood Pressure Mean [Right Arm] 104 Blood Pressure Source [Right Arm] Automatic Cuff Blood Pressure Position [Right Arm] Supine 02 Sat by Pulse Oximetry 100 100 Oxygen Delivery Method Room Air Room Air 03/05/25 17:30 03/05/25 18:36 Temperature 98.2 F Temperature Source Pulse Rate 72 80 Pulse Rate [Right Brachial] Respiratory Rate 13 20 Blood Pressure 146/88 H 138/79 Blood Pressure [Right Arm] Blood Pressure Mean [Right Arm] Blood Pressure Source [Right Arm] Blood Pressure Position [Right Arm] 02 Sat by Pulse Oximetry 99 Oxygen Delivery Method Room Air Room Air Lab Data Lab results reviewed: Yes I reviewed the patient's lab results. Labs: Lab Results 03/05/25 17:05: WBC 8.2, RBC 4.84, Hgb 13.2, Hct 41.3, MCV 85.3, MCH 27.3, MCHC 32.0, RDW 15.8, Plt Count 335, MPV 10.3, Neut % (Auto) 60.1, Lymph % (Auto) 32.8, [place] % (Auto) 4.9, Eos % (Auto) 1.1, Baso % (Auto) 0.9, Neut # (Auto) 4.9, Lymph # (Auto) 2.7, [place] # (Auto) 0.4, Eos # (Auto) 0.1, Baso # (Auto) 0.1, D- Dimer 0.35, Sodium 141, Potassium 3.9, Chloride 104, Carbon Dioxide 25, Anion Gap 15.9 H, BUN 7, Creatinine 0.80, Estimated Creat Clear 174, Estimated GFR 80, Est GFR ( Amer) 97, Glucose 132 H, Calcium 9.6, Total Bilirubin 0.5, AST 24, ALT 18, Alkaline Phosphatase 66, Troponin I < 0.01, NT-Pro-B Natriuret Pep 265 H, Total Protein 7.7, Albumin 4.2, Globulin 3.5 H, Albumin/Globulin Ratio 1.2 03/05/25 17:05 03/05/25 17:05 Response Orders (Tests/Meds): ED MEDICATIONS Discontinued Medications Generic Name Dose Route Start Last Admin Trade Name Freq PRN Reason Stop Dose Admin Ketorolac Tromethamine 15 mg 03/05/25 17:53 03/05/25 18:03 Ketorolac 30mg/Ml Vial IV 03/05/25 17:54 15 mg ONCE ONE Administration ORDERS Category Date Time Status XR chest portable Stat Exams 03/05/25 17:33 Completed Complete Blood Count Auto Diff Stat Lab 03/05/25 17:05 Completed Comprehensive Metabolic Panel Stat Lab 03/05/25 17:05 Completed D-Dimer Stat Lab 03/05/25 17:05 Completed NT Pro Brain Natriuretic Pep. Stat Lab 03/05/25 17:05 Completed Troponin I Stat Lab 03/05/25 17:05 Completed MDM Narrative Medical Decision Narrative: 39-year-old female presents emergency department with chest pain for 10 days, differential diagnose include but not limited to, anxiety type reaction, panic attack, costochondritis, pneumonia, ACS, cardiac arrhythmia, PE, among others. I discussed this case with Will obtain basic laboratory studies, troponin, proBNP, D-dimer, EKG, chest x- ray, will give 15 mg IV Toradol. CBC unremarkable CMP is notable for proBNP elevation to 65, troponin is less than 0.01 D-dimer is 0.35, thus ruling out VTE/PE. Reexamination of patient approximately 6:10 PM, patient did have some relief with Toradol from her chest pain, most likely noncardiac cause of chest pain as patient's symptomatology going on for 10 days, patient has no ischemic changes on EKG, and troponin is within normal limits, D-dimer within normal limits, discussed all results with the patient family bedside patient family agree with current treatment plan/discharge plan, was given strict ED return precautions. Of note, I along with the attending physician independently reviewed the patient's chest x-ray, radiology report is not quite back yet, if there is no acute osseous abnormality, no consolidation, no other acute intrathoracic abnormality, patient would not like to wait on radiology report, will call patient with any results noted on the radiologist, voiced understanding agree with current treatment plan/discharge plan, shared decision-making was utilized. <Flo Laird MD - Last Filed: 03/05/25 19:15> Vital Signs Vital Signs: 03/05/25 16:53 03/05/25 17:05 03/05/25 17:20 Temperature 98.6 F Temperature Source Oral Pulse Rate 80 80 Pulse Rate [Right Brachial] 80 Respiratory Rate 16 13 Blood Pressure 130/78 Blood Pressure [Right Arm] 150/81 H Blood Pressure Mean [Right Arm] 104 Blood Pressure Source [Right Arm] Automatic Cuff Blood Pressure Position [Right Arm] Supine 02 Sat by Pulse Oximetry 100 100 Oxygen Delivery Method Room Air Room Air 03/05/25 17:30 03/05/25 18:36 Temperature 98.2 F Temperature Source Pulse Rate 72 80 Pulse Rate [Right Brachial] Respiratory Rate 13 20 Blood Pressure 146/88 H 138/79 Blood Pressure [Right Arm] Blood Pressure Mean [Right Arm] Blood Pressure Source [Right Arm] Blood Pressure Position [Right Arm] 02 Sat by Pulse Oximetry 99 Oxygen Delivery Method Room Air Room Air Lab Data Labs: Lab Results 03/05/25 17:05: WBC 8.2, RBC 4.84, Hgb 13.2, Hct 41.3, MCV 85.3, MCH 27.3, MCHC 32.0, RDW 15.8, Plt Count 335, MPV 10.3, Neut % (Auto) 60.1, Lymph % (Auto) 32.8, [place] % (Auto) 4.9, Eos % (Auto) 1.1, Baso % (Auto) 0.9, Neut # (Auto) 4.9, Lymph # (Auto) 2.7, [place] # (Auto) 0.4, Eos # (Auto) 0.1, Baso # (Auto) 0.1, D- Dimer 0.35, Sodium 141, Potassium 3.9, Chloride 104, Carbon Dioxide 25, Anion Gap 15.9 H, BUN 7, Creatinine 0.80, Estimated Creat Clear 174, Estimated GFR 80, Est GFR ( Amer) 97, Glucose 132 H, Calcium 9.6, Total Bilirubin 0.5, AST 24, ALT 18, Alkaline Phosphatase 66, Troponin I < 0.01, NT-Pro-B Natriuret Pep 265 H, Total Protein 7.7, Albumin 4.2, Globulin 3.5 H, Albumin/Globulin Ratio 1.2 Response Orders (Tests/Meds): ED MEDICATIONS Discontinued Medications Generic Name Dose Route Start Last Admin Trade Name Freq PRN Reason Stop Dose Admin Ketorolac Tromethamine 15 mg 03/05/25 17:53 03/05/25 18:03 Ketorolac 30mg/Ml Vial IV 03/05/25 17:54 15 mg ONCE ONE Administration ORDERS Category Date Time Status XR chest portable Stat Exams 03/05/25 17:33 Completed Complete Blood Count Auto Diff Stat Lab 03/05/25 17:05 Completed Comprehensive Metabolic Panel Stat Lab 03/05/25 17:05 Completed D-Dimer Stat Lab 03/05/25 17:05 Completed NT Pro Brain Natriuretic Pep. Stat Lab 03/05/25 17:05 Completed Troponin I Stat Lab 03/05/25 17:05 Completed ECG Data Tracing #1: Attestation: I reviewed this ECG and interpreted as documented below: (Sinus rhythm 73 bpm with CO 172, QRS 91, QTc 414. No acute ischemic change. Normal axis) MDM Narrative Medical Decision Narrative: 39-year-old female presents emergency department with chest pain for 10 days, differential diagnose include but not limited to, anxiety type reaction, panic attack, costochondritis, pneumonia, ACS, cardiac arrhythmia, PE, among others. I discussed this case with Will obtain basic laboratory studies, troponin, proBNP, D-dimer, EKG, chest x- ray, will give 15 mg IV Toradol. CBC unremarkable CMP is notable for proBNP elevation to 65, troponin is less than 0.01 D-dimer is 0.35, thus ruling out VTE/PE. Reexamination of patient approximately 6:10 PM, patient did have some relief with Toradol from her chest pain, most likely noncardiac cause of chest pain as patient's symptomatology going on for 10 days, patient has no ischemic changes on EKG, and troponin is within normal limits, D-dimer within normal limits, discussed all results with the patient family bedside patient family agree with current treatment plan/discharge plan, was given strict ED return precautions. Of note, I along with the attending physician independently reviewed the patient's chest x-ray, radiology report is not quite back yet, if there is no acute osseous abnormality, no consolidation, no other acute intrathoracic abnormality, patient would not like to wait on radiology report, will call patient with any results noted on the radiologist, voiced understanding agree with current treatment plan/discharge plan, shared decision-making was utilized. I was consulted by the MADELIN, and we discussed the complexity of the problems being addressed. I approved the treatment and management plan for this patient's care in the Emergency Department, thus performing a substantive portion of the medical decision making. Flo Laird MD
[2025-03-05 17:56] LABS: NT Pro Brain Natriuretic Pep. 265 pg/mL (0-125)
[2025-03-05 18:02] LABS: D-Dimer 0.35 ug/mL (0.0-0.5)
[2025-03-05] MEDS: KETOROLAC 30MG/ML VIAL 15 MG IV (18:03)
[2025-03-05 18:36] VITALS: BP 138/79; PULSE 80; RESP 20; TEMP 36.8; O2SAT 98
== END 2025-03-05 18:38 | disposition home or self-care (01) ==
PROVIDERS: Physician Assistant; Emergency Provider Emergency Medicine; PCP Family Medicine
DX: R07.2 Precordial pain (principal); F17.210 Nicotine dependence, cigarettes, uncomplicated
CPT/HCPCS: 71045; 80053; 83880; 84484; 85025; 85378; 93005; 96374; 99284; J1885

== ENCOUNTER 2025-07-28 07:44 | Day surgery (SDC) | payer OTHER, SELFPAY ==
--- NOTE | 2025-07-22 13:16 | EXP.HP ---
History of Present Illness *Admission Date: 07/28/25 *History of present illness: Mrs. Hussein is a 40-year-old female who is here for diagnostic colonoscopy. The patient reports some rectal bleeding and has had issues with mixed IBS (alternating constipation and diarrhea). She does state that her mother had IBS and ulcerative colitis. She has had some bright red rectal bleeding for 6 months and in mid April had more significant rectal bleeding with blood dripping even when she was not having a bowel movement. The examination is deemed medically necessary for diagnostic colonoscopy. The patient has been seen, interviewed and examined prior to the procedure by both myself and the anesthesia provider. [facility] Disclaimer: The information contained in this section may have been updated after the patient was seen, as this information can be updated by other users. Medical History delivery delivered ESR raised Mood disorder UTI symptoms Viral syndrome Mood disorder Iron deficiency High cholesterol Screening for cervical cancer BPPV (benign paroxysmal positional vertigo) Mixed hearing loss of left ear History of Meniere's disease Hearing loss Abnormal electrocardiogram [ECG] [EKG] Surgical History History of tonsillectomy and adenoidectomy Family History Other Alcoholism Cancer Coronary artery disease Diabetes Heart attack Hypertension Substance abuse Social History Smoking Status: Current every day smoker tobacco type: cigarettes alcohol intake: never substance use type: denies use current occupational status: employed Travel in the last 8 weeks?: None household members: children housing: apartment marital status: Have you lived/traveled outside [place] in past 30 days?: No Contact w/someone who lives/traveled outside US past 30 days?: No Exposure to someone with infectious disease in past 14 days?: No Do you have a fever (greater than 100.4 F or 38 C)?: No Have you tested positive for COVID-19?: No Exposed to someone with COVID-19 in past 14 days?: No Do you have a sore throat?: No Do you have a cough?: No Do you have any weakness?: No Do you have any diarrhea?: No Are you experiencing any unusual bleeding?: No Do you have any muscle aches/pain?: No Do you have any abdominal pain?: No Are you experiencing loss of taste or smell?: No Other Medical History Have you received the Flu Vaccine for this season: No Have you received the Pneumonia Vaccine: No Review of Systems Review of Systems Review of systems (narrative): Negative *Cardiovascular Comments: Negative *Gastrointestinal Comments: Negative *Genitourinary Comments: Negative *Musculoskeletal Comments: Negative *Neurologic Comments: Negative Meds Home Medications and Allergies Home Medications ?Medication ?Instructions ?Recorded ?Confirmed ?Type nitroglycerin 0.4 mg sublingual 0.4 mg sublingual Q5M PRN chest 06/24/23 07/28/25 Rx tablet pain #25 tabs albuterol sulfate 90 mcg/actuation 1 inh inhalation QID PRN shortness 12/16/23 07/28/25 Rx aerosol inhaler of breath or wheezing #8.5 grams montelukast 10 mg tablet 10 mg PO DAILY #90 tabs 03/07/25 07/28/25 Rx nicotine (polacrilex) 4 mg gum 4 mg buccal Q2H #50 ea 05/31/25 07/28/25 Rx rimegepant 75 mg disintegrating See Rx Instructions .Route 06/07/25 07/28/25 Rx tablet (Nurtec ODT) .COMPLEX #15 tabs omeprazole 40 mg capsule,delayed See Rx Instructions .Route 06/20/25 07/28/25 Rx release .COMPLEX #90 caps buspirone 15 mg tablet 15 mg PO BID #60 tabs 06/29/25 07/28/25 Rx hydroxyzine HCl 25 mg tablet 25 mg PO HS #30 tabs 06/29/25 07/28/25 Rx lamotrigine 100 mg tablet 200 mg (2 x 100 mg) PO DAILY #60 06/29/25 07/28/25 Rx (Lamictal) tabs venlafaxine 37.5 mg 37.5 mg PO DAILY #30 caps 06/29/25 07/28/25 Rx capsule,extended release 24 hr propranolol 20 mg tablet 20 mg PO BID #180 tabs 07/26/25 07/28/25 Rx New Prescriptions to Start Prescriptions: Allergies Allergy/AdvReac Type Severity Reaction Status Date / Time venlafaxine AdvReac diaphoresis Verified 07/28/25 08:34 Exam *Routine HEENT Exam Head: Present normocephalic Eye: Present EOMI and PERRL ENT: Present mucous membranes moist *Routine Neck Exam Neck: Present supple *Routine Respiratory Exam Respiratory: Present CTA bilaterally *Routine Cardiovascular Exam Cardiovascular: Present RRR *Routine Abdominal Exam Abdominal: Present soft and normoactive bowel sounds; Absent tenderness *Routine Rectal Exam Rectal:: deferred *Routine Genitalia Exam Genitalia:: deferred *Routine Extremities Exam Extremities: Absent cyanosis, clubbing or edema *Routine Skin Exam Skin: Present warm; Absent rash *Routine Neurological Exam Neurological: Present alert and oriented X3 Assessment and Plan *Assessment and plan (1) Bright red rectal bleeding: Status: Acute Category: Medical Code(s): K62.5 - Hemorrhage of anus and rectum (2) Irregular bowel habits: Status: Acute Category: Medical Code(s): R19.8 - Other specified symptoms and signs involving the digestive system and abdomen (3) ESR raised: Status: Acute Category: Medical Code(s): R70.0 - Elevated erythrocyte sedimentation rate (4) Alternating constipation and diarrhea: Status: Acute Category: Medical Code(s): R19.8 - Other specified symptoms and signs involving the digestive system and abdomen (5) Family history of ulcerative colitis: Status: Acute Category: Medical Code(s): Z83.79 - Family history of other diseases of the digestive system Plan A/P: 1. Bright red rectal bleeding with irregular bowel habits/alternating constipation and diarrhea, family history (mother with ulcerative colitis) and raised ESR is the preprocedural diagnosis. The patient will be anesthetized/sedated using MAC sedation. The patient has been seen and examined. Cardiac and lung assessment prior to the examination is stable. Proceed with planned diagnostic colonoscopy.
[2025-07-26 14:16] VITALS: BMI 37.2
--- NOTE | 2025-07-28 06:57 | HMH.PROCNOTE ---
[facility] Procedure Note Date: 07/28/25 Time: 10:01 Procedure Note:: Colonoscopy Procedure Report: Colonoscopy with cold biopsies and hemorrhoid band ligation Endoscopist: Toño Coyle II, MD Referring physician: Johan Booker MD/Binu Sung, Date of Procedure: July 28, 2025 Equipment: Olympus [id number] adult colonoscope Sedation: MAC sedation Indication: Mrs. Hussein is a 40-year-old female who is here for diagnostic colonoscopy. The patient reports some rectal bleeding and has had issues with mixed IBS (alternating constipation and diarrhea). She does report skipping 4 days without a bowel movement and then having more extreme diarrhea. She does get crampy abdominal discomfort and lower abdominal pain. She has gassiness and bloating. She reports no mucus with her bowel movements. She has had no unintentional weight loss. She does report some incomplete defecation with excessive wiping. She does state that her mother had IBS and ulcerative colitis. She has had some bright red rectal bleeding for 6 months and in mid April had more significant rectal bleeding with blood dripping even when she was not having a bowel movement. She does note some hemorrhoidal prolapse. The patient did have a colonoscopy at age 11 and at that time had C. difficile. The examination is deemed medically necessary for diagnostic colonoscopy. Procedure: Prior to the procedure, a history and physical exam was performed, and patient's medications and allergies were reviewed. The risks, benefits and alternatives of the sedation and procedure were discussed with the patient. All questions were answered and informed consent was obtained. The patient was brought to the procedure room. Patient identification and proposed procedure were verified by the physician and the nurse. The patient was placed in a left lateral decubitus position and the scope was passed under direct vision. Throughout the procedure, the patient's blood pressure, pulse, and oxygen saturations were monitored continuously. The colonoscopy was accomplished without difficulty. The patient tolerated the procedure well. Findings: On digital rectal examination there was normal rectal tone. There was hemorrhoidal prolapse with external hemorrhoidal tags. The colonoscope was introduced through the anal canal to the rectum and advanced to the cecum. The ileocecal valve and appendiceal orifice were identified. The scope was advanced a short distance into the ileum which appeared grossly normal. The scope was then withdrawn into the colon. The cecum, ascending, transverse, descending, sigmoid and rectum were grossly normal. There were no mucosal abnormalities identified. Random cold biopsies were taken from the right colon to rule out microscopic colitis. Upon retroflexion within the rectum there were grade 2-3 internal hemorrhoids. 3 columns of hemorrhoids were banded using 3 bands with excellent ligation effect. The preparation was excellent throughout with P[place]leton Preparation Score of 9. The cecal time was 12 minutes. Impression: 1. Normal colonoscopy with intubation of the terminal ileum 2. Grade 2-3 internal hemorrhoids status post band ligation x 3 Plan: I would strongly encourage a fiber bowel regimen (combined MiraLAX plus Metamucil mixed together) every morning on a regular and daily basis. I will discuss the findings with the patient and family.
[2025-07-28 08:37] LABS: Urine Pregnancy, HCG Qual. Negative (Negative)
[2025-07-28 08:39] VITALS: BP 143/70; PULSE 95; RESP 16; TEMP 36.4; O2SAT 98
[2025-07-28] MEDS: LACTATED RINGERS 1000ML 1,000 ML 50 ML IV (08:44)
--- NOTE | 2025-07-28 09:05 | EXP.ANES.CKL ---
[facility] Disclaimer: The information contained in this section may have been updated after the patient was seen, as this information can be updated by other users. Medical History delivery delivered ESR raised Mood disorder UTI symptoms Viral syndrome Mood disorder Iron deficiency High cholesterol Screening for cervical cancer BPPV (benign paroxysmal positional vertigo) Mixed hearing loss of left ear History of Meniere's disease Hearing loss Abnormal electrocardiogram [ECG] [EKG] Surgical History History of tonsillectomy and adenoidectomy Family History Other Alcoholism Cancer Coronary artery disease Diabetes Heart attack Hypertension Substance abuse Social History Smoking Status: Current every day smoker tobacco type: cigarettes alcohol intake: never substance use type: denies use current occupational status: employed Travel in the last 8 weeks?: None household members: children housing: apartment marital status: Have you lived/traveled outside [place] in past 30 days?: No Contact w/someone who lives/traveled outside [place] past 30 days?: No Exposure to someone with infectious disease in past 14 days?: No Do you have a fever (greater than 100.4 F or 38 C)?: No Have you tested positive for COVID-19?: No Exposed to someone with COVID-19 in past 14 days?: No Do you have a sore throat?: No Do you have a cough?: No Do you have any weakness?: No Do you have any diarrhea?: No Are you experiencing any unusual bleeding?: No Do you have any muscle aches/pain?: No Do you have any abdominal pain?: No Are you experiencing loss of taste or smell?: No [facility] Anesthesia Checklist Patient Identification Patient Identification: Arm Band Structural Data Admitted From: Home Planned Operative Procedure/s: Colonoscopy Consent for Planned Operative Procedure(s) Verified: Yes Verified Documents: Surgical Consent and History and Physical NPO Status Verified Time NPO: 03:00 (finished prep) Additional verifications Anesthesia Reactions: No Airway Assessment Mallampati Score:: Class II C-Spine Mobility Assessed: Yes TMJ Mobility Assessed: Yes Dentition: Good Dentition Neurological Assessment Level of Consciousness: Awake, Alert and Appropriate Anesthesia Plan Anesthesia Risk discussed: Yes Anesthesia Plan: Verified ASA Class: II Anesthesia Type: MAC
[2025-07-28 10:10] VITALS: BP 118/59; PULSE 70; RESP 16; TEMP 36.6; O2SAT 100
[2025-07-28 10:20] VITALS: BP 145/70; PULSE 64; RESP 18; TEMP 36.6; O2SAT 100
[2025-07-28 10:30] VITALS: BP 143/72; PULSE 62; RESP 18; TEMP 36.6; O2SAT 100
[2025-07-28 10:40] VITALS: BP 143/72; PULSE 62; RESP 18; TEMP 36.6; O2SAT 100
== END 2025-07-28 10:40 | disposition home or self-care (01) ==
PROVIDERS: PCP Student in an Organized Health Care Education/Training Program; Visit Provider Internal Medicine Gastroenterology
PROC: 0DJD8ZZ Inspection of Lower Intestinal Tract, Via Natural or Artificial Opening Endoscopic (ICD-10-PCS; CPT 45378; principal; 2025-07-28 09:30)
DX: K64.2 Third degree hemorrhoids (principal); K64.4 Residual hemorrhoidal skin tags; K58.2 Mixed irritable bowel syndrome; K62.5 Hemorrhage of anus and rectum; R15.0 Incomplete defecation; R70.0 Elevated erythrocyte sedimentation rate; Z83.79 Family history of other diseases of the digestive system; Z87.19 Personal history of other diseases of the digestive system; F17.210 Nicotine dependence, cigarettes, uncomplicated
CPT/HCPCS: 45380; 45398; 81025; C1889; J2003; J2704; J7120